=== PATIENT | male | born 1985 | race Caucasian/White ===

== ENCOUNTER 2024-05-06 02:14 | Emergency (ER) | payer BC ==
[~2024-05-06] VITALS: Ht 193 cm; Wt 86.4 kg
[2024-05-06] MEDS: ondansetron/PF 4mg/2ml inj IV ONE (02:40)
[2024-05-06] MEDS: ketorolac tromethamine 15mg/ml inj. IV ONE (02:41)
[2024-05-06] MEDS: morphine 4 MG/ML inj SYRINge IV ONE (02:41)
[2024-05-06 02:53] LABS: BASOPHILS % (AUTO) 0.4 % (0-1); EOSINOPHILS # (AUTO) 0.8 X10'3 (0-0.9); EOSINOPHILS % (AUTO) 7.2 % (0-6); HEMATOCRIT 45.5 % (42.0-52.0); HEMOGLOBIN 15.6 g/dl (14.0-17.9); LYMPHOCYTES # (AUTO) 2.9 X10'3 (1.1-4.8); LYMPHOCYTES % (AUTO) 27.7 % (21-51); MEAN CORPUSCULAR HEMOGLOBIN 29.3 PG (27.0-31.0); MEAN CORPUSCULAR HGB CONC 34.3 g/dL (33.0-36.5); MEAN CORPUSCULAR VOLUME 85.5 FL (78-98); MEAN PLATELET VOLUME 7.4 FL (7.4-10.4); MONOCYTES # (AUTO) 0.5 X10'3 (0-0.9); MONOCYTES % (AUTO) 5.2 % (2-12); NEUTROPHILS # (AUTO) 6.2 X10'3 (1.8-7.7); NEUTROPHILS % (AUTO) 59.5 % (42-75); PLATELET COUNT 281 X10'3 (140-440); RED BLOOD COUNT 5.32 X10'6 (4.70-6.10); RED CELL DISTRIBUTION WIDTH 13.6 % (11.5-14.5); WHITE BLOOD COUNT 10.5 X10'3 (4.5-11.0)
[2024-05-06 03:05] LABS: ALANINE AMINOTRANSFERASE 29 U/L (12-78); ALBUMIN 4.3 G/DL (3.4-5.0); ALBUMIN/GLOBULIN RATIO 1.2 (1.1-1.5); ALKALINE PHOSPHATASE 115 IU/L (46-116); ANION GAP 10 (8-16); ASPARTATE AMINO TRANSFERASE 14 U/L (10-37); BLOOD UREA NITROGEN 19 MG/DL (7-18); BUN/CREATININE RATIO 15.6 (10.0-20.0); CALCIUM 9.3 MG/DL (8.5-10.1); CHLORIDE 103 MMOL/L (99-107); CREATININE 1.22 MG/DL (0.60-1.10); GLUCOSE 135 MG/DL (70-104); LIPASE 34 U/L (16-77); POTASSIUM 3.6 MMOL/L (3.5-5.1); SODIUM 139 MMOL/L (135-145); TOTAL CARBON DIOXIDE 25.6 MMOL/L (24-32); TOTAL PROTEIN 7.8 G/DL (6.4-8.2); eCRCL 101 ML/MIN; eGFR 67 ML/MIN
[2024-05-06] MEDS: normal saline 1000ml 1,000 ML IV ONE (05:03)
[2024-05-06] MEDS: normal saline 1000ML IV soln IVB ONE (05:08)
[2024-05-06] MEDS ORDERED: HYDR-3965 PO (06:02)
[2024-05-06] MEDS ORDERED: ONDA-245 PO (06:02)
[2024-05-06] MEDS ORDERED: FLO0.4C PO (06:03)
[2024-05-06] MEDS: tamsulosin 0.4mg capsule PO ONE (06:03)
[2024-05-06 06:32] LABS: BILIRUBIN,URINE NEGATIVE (Neg); CLARITY,URINE SLIGHTLY CLOUDY (Clear); COLOR,URINE YELLOW (Yellow); GLUCOSE, URINE NEGATIVE (Neg); KETONES,URINE TRACE mg/dl (Neg); LEUKOCYTE ESTERASE ,URINE NEGATIVE (Neg); OCCULT BLOOD,URINE LARGE (Neg); UROBILINOGEN,URINE 0.2 E.U/dL (0.2-1.0)
[2024-05-06 07:10] LABS: NITRITES, URINE NEGATIVE (Neg); PROTEIN,URINE TRACE mg/dl (Neg)
[2024-05-06] MEDS ORDERED: NO HOME MEDS (07:12)
[2024-05-06 07:13] LABS: UA COLLECTION TYPE CLN CATCH MIDSTREAM
[2024-05-06 07:18] LABS: MUCUS STRANDS MANY /LPF (Neg); RBC,URINE TNTC /HPF (0-2)
[2024-05-06 07:19] LABS: BACTERIA,URINE FEW /HPF (Neg)
[2024-05-06 07:20] LABS: CAL OXALATE CRYSTALS 1+ /HPF (NEGATIVE)
[2024-05-06 07:21] LABS: SQUAMOUS EPITHELIAL CELL,UR FEW /LPF (FEW); TRANSITIONAL EPI CELLS,URINE FEW /HPF
[2024-05-06 07:25] LABS: WBC,URINE 0-4 /HPF (0-4)
[2024-05-06 07:59] VITALS: BP 114/64; PULSE 81; RESP 18; TEMP 98; O2SAT 99
== END 2024-05-06 07:35 | disposition home or self-care (01) ==
LOC: ER 02:15
DX: N20.0 Calculus of kidney (principal); R11.0 Nausea
CPT/HCPCS: 36415; 80053; 81001; 83690; 85025; 96361; 96374; 96375; 99285; J1885; J2270; J2405; J7030